=== PATIENT | female | born 1960 | race African-American/Black ===

== ENCOUNTER 2016-07-28 13:04 | Emergency (ER) | payer MEDICARE, MEDICAID ==
[2016-07-28] MEDS ORDERED: PREDNISONE 20 MG TABLET PO ONE (13:38)
[2016-07-28] MEDS ORDERED: ALBUTEROL SULFATE 0.083% NEB 2.5 MG/3 ML AMPUL NEB ONE (13:38)
--- NOTE | 2016-07-28 13:38 | ER Document Report ---
ED Medical Screen (RME) - General Stated Complaint: POSSIBLE ASTHMA PROBLEM Time seen by provider: 13:36 Mode of Arrival: Ambulatory Information source: Patient TRAVEL OUTSIDE OF THE U.S. IN LAST 30 DAYS: No - HPI Patient complains to provider of: ASTHMA ACTING UP Onset: Other - LAST NIGHT Onset/Duration: Sudden Quality of pain: Achy Severity: Moderate Pain Level: 3 Associated Symptoms: Cough (nonproductive), Sinus pain/drainage. denies: Fever Exacerbated by: Coughing, Deep breathing Relieved by: Denies Similar symptoms previously: Yes Recently seen / treated by doctor: No - Related Data Smoking: Non-smoker, Quit greater than 1 year Frequency of alcohol use: None Drug Abuse: None Allergies/Adverse Reactions: No Known Allergies Allergy (Verified 04/30/15 14:25) Past Medical History - Past Medical History Cardiac Medical History: Reports: Hx Hypertension Pulmonary Medical History: Reports: Hx Asthma, Hx COPD Musculoskeltal Medical History: Reports Hx Arthritis Past Surgical History: Reports: Hx Tubal Ligation, Hx Urinary Tract Surgery - Immunizations Immunizations up to date: Yes Hx Diphtheria, Pertussis, Tetanus Vaccination: Yes Physical Exam - Vital signs Vitals: Temp Pulse Resp BP Pulse Ox 98.8 F 82 22 H 157/114 H 97 07/28/16 13:35 07/28/16 13:35 07/28/16 13:35 07/28/16 13:35 07/28/16 13:35 Course - Vital Signs Vital signs: Temp Pulse Resp BP Pulse Ox 98.8 F 82 22 H 157/114 H 97 07/28/16 13:35 07/28/16 13:35 07/28/16 13:35 07/28/16 13:35 07/28/16 13:35
[2016-07-28] MEDS ORDERED: IPRATROPIUM/ALBUTEROL 0.5-2.5 MG/3 ML AMPUL NEB ONE ×2 (14:28→15:37)
--- NOTE | 2016-07-28 15:39 | ER Document Report ---
ED Respiratory Problem - General Time seen by provider: 15:38 Mode of Arrival: Ambulatory Information source: Patient TRAVEL OUTSIDE OF THE U.S. IN LAST 30 DAYS: No - General Chief Complaint: Shortness Of Breath Stated Complaint: POSSIBLE ASTHMA PROBLEM - Related Data Allergies/Adverse Reactions: No Known Allergies Allergy (Verified 07/28/16 13:39) Home Medications: Current Home Medications Atorvastatin Calcium 20 mg PO DAILY 07/28/16 [History] Cetirizine HCl [Zyrtec] 10 mg PO DAILY 07/28/16 [History] Past Medical History - General Information source: Patient - Social History Smoking Status: Former Smoker Chew tobacco use (# tins/day): No Frequency of alcohol use: None Drug Abuse: None Family History: Reviewed & Not Pertinent Patient has suicidal ideation: No Patient has homicidal ideation: No - Past Medical History Cardiac Medical History: Reports: Hx Hypercholesterolemia, Hx Hypertension Pulmonary Medical History: Reports: Hx Asthma, Hx COPD Renal/ Medical History: Denies: Hx Peritoneal Dialysis Musculoskeltal Medical History: Reports Hx Arthritis Past Surgical History: Reports: Hx Tonsillectomy, Hx Tubal Ligation, Hx Urinary Tract Surgery - Immunizations Immunizations up to date: Yes Hx Diphtheria, Pertussis, Tetanus Vaccination: Yes Hx Pneumococcal Vaccination: 06/28/12 Course - Vital Signs Vital signs: Temp Pulse Resp BP Pulse Ox 98.8 F 106 H 20 148/98 H 96 07/28/16 13:35 07/28/16 18:26 07/28/16 18:26 07/28/16 18:26 07/28/16 18:26 (DANIELE RODRÍGUEZ) (MICHELLE BOUCHER) - EKG Interpretation by Me Additional EKG results interpreted by me: 07/28/16 20:17 EKG sinus tachycardia [address] segment elevation or depression (MICHELLE BOUCHER) Discharge - Discharge Clinical Impression: Asthma exacerbation Condition: Stable Disposition: HOME, SELF-CARE Additional Instructions: Asthma You have been diagnosed as having asthma. This is a condition where there is episodic tightness in the bronchial tubes. Allergies, infections, and polluted or cold air may be contributing factors. Emergency treatment of a severe asthma attack may include adrenaline shots , or bronchodilator aerosol. You may feel lightheaded, have a decreased exercise tolerance and a rapid pulse for an hour or two. Rest and get plenty of fluids. Home treatment of asthma requires bronchodilator drugs. These can be administered by injection, inhalation, or by mouth. Antibiotics and corticosteroids may be required for some patients. You should avoid chemical fumes, dusts, pollens, and exercising in very cold or dry air. If you smoke, stop!! If you develop a fever, increased wheezing, chest pain, or severe shortness of breath, you should contact the doctor immediately Prescriptions: Prednisone [Deltasone 20 mg Tablet] 3 tab PO DAILY 5 Days Referrals: TERELL ROWLEY FNP [Primary Care Provider] - Follow up as needed (In one to 2 days return for increasing worsening or new symptoms)
[2016-07-28] MEDS: ALBUTEROL SULFATE 0.083% NEB 2.5 MG/3 ML AMPUL NEB SCH ×2 (15:45→15:50)
[2016-07-28] MEDS ORDERED: MAGNESIUM SULFATE/D5W 100 ML IV SCH (16:15)
--- NOTE | 2016-07-28 16:18 | ER Document Report ---
ED Respiratory Problem - General Mode of Arrival: Ambulatory Information source: Patient TRAVEL OUTSIDE OF THE U.S. IN LAST 30 DAYS: No - HPI Patient complains to provider of: Asthma, Short of breath Onset: Other - see above Context: Hx asthma, Hx COPD, Other - see above Associated symptoms: Other - see above - General Chief Complaint: Shortness Of Breath Stated Complaint: POSSIBLE ASTHMA PROBLEM Notes: 55-year-old female with history of COPD, asthma, and right leg DVT presents to the ED complaining of being sick for the past 3 weeks. Patient states that she currently feels like she is having an asthma exacerbation mixed with a cold. Patient states that her symptoms got better but then got progressively worse again. Patient is complaining of wheezing, dizziness, diaphoresis, weakness, and diarrhea for the past 2 days. Patient denies any body pains or joint aches. Patient is currently on albuterol, Symbicort, and uses a nebulizer at home. (ISAIAH TO) - Related Data Allergies/Adverse Reactions: No Known Allergies Allergy (Verified 07/28/16 13:39) Home Medications: Current Home Medications Atorvastatin Calcium 20 mg PO DAILY 07/28/16 [History] Cetirizine HCl [Zyrtec] 10 mg PO DAILY 07/28/16 [History] Past Medical History - General Information source: Patient - Social History Smoking Status: Former Smoker Chew tobacco use (# tins/day): No Frequency of alcohol use: None Drug Abuse: None Family History: Reviewed & Not Pertinent Patient has suicidal ideation: No Patient has homicidal ideation: No - Past Medical History Cardiac Medical History: Reports: Hx Hypercholesterolemia, Hx Hypertension Pulmonary Medical History: Reports: Hx Asthma, Hx COPD Renal/ Medical History: Denies: Hx Peritoneal Dialysis Musculoskeltal Medical History: Reports Hx Arthritis Past Surgical History: Reports: Hx Tonsillectomy, Hx Tubal Ligation, Hx Urinary Tract Surgery - Immunizations Immunizations up to date: Yes Hx Diphtheria, Pertussis, Tetanus Vaccination: Yes Hx Pneumococcal Vaccination: 06/28/12 Review of Systems - Review of Systems Constitutional: See HPI, Diaphoresis, Weakness. denies: Malaise EENT: No symptoms reported Cardiovascular: See HPI, Dizziness Respiratory: See HPI, Cough, Short of breath, Wheezing Gastrointestinal: See HPI, Diarrhea - past 2 days Genitourinary: No symptoms reported Female Genitourinary: No symptoms reported Musculoskeletal: No symptoms reported Skin: No symptoms reported Hematologic/Lymphatic: No symptoms reported Neurological/Psychological: No symptoms reported -: Yes All other systems reviewed and negative Physical Exam - General General appearance: Alert In distress: None - HEENT Head: Normocephalic, Atraumatic Eyes: Normal Extraocular movements intact: Yes Pupils: PERRL - Respiratory Respiratory status: No respiratory distress Breath sounds: Decreased air movement - Decreased air movement while on a nebulizer treatment. Pulse ox at 97% on examination., Wheezing - Expiratory - Cardiovascular Rhythm: Regular Heart sounds: Normal auscultation - Abdominal Inspection: Normal - Back Back: Normal - Extremities General upper extremity: Normal inspection, Normal ROM General lower extremity: Normal inspection, Normal ROM - Neurological Neuro grossly intact: Yes Cognition: Normal Orientation: AAOx4 Arben Coma Scale Eye Opening: Spontaneous [place] Coma Scale Verbal: Oriented [place] Coma Scale Motor: Obeys Commands Arben Coma Scale Total: 15 Speech: Normal - Psychological Associated symptoms: Normal affect, Normal mood - Skin Skin Temperature: Warm Skin Moisture: Dry Skin Color: Normal - Vital signs Vitals: Temp Pulse Resp BP Pulse Ox 98.8 F 82 22 H 157/114 H 97 07/28/16 13:35 07/28/16 13:35 07/28/16 13:35 07/28/16 13:35 07/28/16 13:35 (ISAIAH TO) (MICHELLE BOUCHER) Course - Re-evaluation Re-evalutation: 07/28/16 17:54 I personally performed the services described in the documentation, reviewed and edited the documentation which was dictated to my scribe in my presence, and it accurately records my words and actions. presents emergency per chief plain shortness breath and wheezing. She said she had a little bit of cold and started wheezing. She's been using an inhaler and breathing treatments at home. She states she's had a long-standing history of asthma cannot recall the last time she was on steroids but has not been intubated. She also has a history of COPD but she states it's very mild doesn't require oxygen. No fevers chills vomiting she is well-appearing nontoxic decreased lung sounds with expiratory wheezes. Chest x-ray nonacute ordered Solu -Medrol magnesium and [id number] breathing treatments. Reassessment patient got a small amount of the magnesium is completely symptom resolved right now breathing easily in no acute distress with no wheezing good air movement stable pulse ox. We'll DC on prednisone close PCP follow-up 1-2 days and return for increasing worsening or new symptoms (MICHELLE BOUCHER) - Vital Signs Vital signs: Temp Pulse Resp BP Pulse Ox 98.8 F 105 H 24 H 139/80 H 95 07/28/16 13:35 07/28/16 17:14 07/28/16 17:15 07/28/16 17:15 07/28/16 17:15 (ISAIAH TO) (MICHELLE BOUCHER) Discharge - Discharge Clinical Impression: Asthma exacerbation Condition: Stable Disposition: HOME, SELF-CARE Additional Instructions: Asthma You have been diagnosed as having asthma. This is a condition where there is episodic tightness in the bronchial tubes. Allergies, infections, and polluted or cold air may be contributing factors. Emergency treatment of a severe asthma attack may include adrenaline shots , or bronchodilator aerosol. You may feel lightheaded, have a decreased exercise tolerance and a rapid pulse for an hour or two. Rest and get plenty of fluids. Home treatment of asthma requires bronchodilator drugs. These can be administered by injection, inhalation, or by mouth. Antibiotics and corticosteroids may be required for some patients. You should avoid chemical fumes, dusts, pollens, and exercising in very cold or dry air. If you smoke, stop!! If you develop a fever, increased wheezing, chest pain, or severe shortness of breath, you should contact the doctor immediately Prescriptions: Prednisone [Deltasone 20 mg Tablet] 3 tab PO DAILY 5 Days Referrals: TERELL ROWLEY BOARD MEMBER [Primary Care Provider] - Follow up as needed (In one to 2 days return for increasing worsening or new symptoms) Scribe Documentation - Scribe Written by Itzel:: Itzel Wyatt, 07/28/2016 16:21 acting as scribe for :: Jak
[2016-07-28 18:07] VITALS: BP 148/98
--- NOTE | 2016-07-29 09:25 | EKG REPORT ---
SEVERITY:- OTHERWISE NORMAL ECG - SINUS TACHYCARDIA : Confirmed by: Fransico Marshall 29-Jul-2016 09:24:34
== END 2016-07-28 18:51 | disposition home or self-care (01) ==
LOC: ER 13:04
DX: J45.901 Unspecified asthma with (acute) exacerbation (principal); J44.9 Chronic obstructive pulmonary disease, unspecified; R42 Dizziness and giddiness; R61 Generalized hyperhidrosis; R53.1 Weakness; R19.7 Diarrhea, unspecified; R06.02 Shortness of breath; R05 Cough; I10 Essential (primary) hypertension; Z86.718 Personal history of other venous thrombosis and embolism; Z79.899 Other long term (current) drug therapy; Z79.51 Long term (current) use of inhaled steroids; Z87.891 Personal history of nicotine dependence
CPT/HCPCS: 93005; 94640 ×2; 99285; 96365; 96366; 71020; 93010; J3475; A9270 ×3; J7512; J7620

== ENCOUNTER 2016-10-05 17:15 | Emergency (ER) | payer MEDICARE, MEDICAID ==
[2016-10-05] MEDS: ALBUTEROL SULFATE 0.083% NEB 2.5 MG/3 ML AMPUL NEB SCH ×2 (17:41→18:03)
[2016-10-05] MEDS ORDERED: PENICILLIN V POTASSIUM 500 MG TABLET PO ONE (17:41)
[2016-10-05] MEDS ORDERED: PREDNISONE 20 MG TABLET PO ONE (17:41)
[2016-10-05] MEDS ORDERED: IPRATROPIUM/ALBUTEROL 0.5-2.5 MG/3 ML AMPUL NEB ONE (17:41)
[2016-10-05] MEDS ORDERED: HYDROCODONE/ACETAMINOPHEN 5-325 MG TABLET PO ONE (17:44)
--- NOTE | 2016-10-05 17:46 | ER Document Report ---
ED Respiratory Problem - General Chief Complaint: Asthma Exacerbation Stated Complaint: MOUTH PAIN Time seen by provider: 17:40 Mode of Arrival: Ambulatory Information source: Patient Notes: 55-year-old female presents to ED for shortness of breath right-sided mouth pain with a tooth that is half broken off. Patient states she broke a tooth off about 2 weeks ago, tooth has been hurting since Wednesday. States she just went to a were a lot of people were smoking she just got back to [place] and asthma attack started on the way home from the . TRAVEL OUTSIDE OF THE U.S. IN LAST 30 DAYS: No - HPI Patient complains to provider of: Asthma, COPD, Short of breath, Other - Dental pain number 28 tooth part of tooth broke off and now painful, states, also hurts Onset: Other - Tooth broke off 2 weeks ago started hurting on the way home asthma attack started on the way home Initiating Event: Exposure to smoke - Was at a and multiple people were smoking Quality of pain: Sharp - Tooth, Throbbing Severity: Severe Pain Level: 5 Context: Hx asthma, Hx COPD, Other - is a smoker and she was at a were multiple people were smoking Short of Breath: Moderate Chest pain/discomfort: Tightness Sputum amount: None At home treatment: Bronchodilators Associated symptoms: Dental decay, Short of breath, Toothache, Wheezing Similar symptoms previously: Yes Recently seen / treated by doctor: No - Related Data Allergies/Adverse Reactions: No Known Allergies Allergy (Verified 07/28/16 13:39) Past Medical History - General Information source: Patient - Social History Smoking Status: Former Smoker Cigarette use (# per day): No Chew tobacco use (# tins/day): No Smoking Education Provided: No Frequency of alcohol use: None Drug Abuse: None Lives with: Family Family History: CAD, CVA, DM, Hyperlipidemia, Hypertension, Malignancy - Past Medical History Cardiac Medical History: Reports: Hx Hypercholesterolemia, Hx Hypertension Pulmonary Medical History: Reports: Hx Asthma, Hx COPD EENT Medical History: Reports: None Neurological Medical History: Reports: None Endocrine Medical History: Reports: None Renal/ Medical History: Reports: None. Denies: Hx Peritoneal Dialysis Malignancy Medical History: Reports: None GI Medical History: Reports: None Musculoskeltal Medical History: Reports Hx Arthritis Skin Medical History: Reports None Psychiatric Medical History: Reports: None Traumatic Medical History: Reports: None Infectious Medical History: Reports: Hx C-Diff Past Surgical History: Reports: Hx Tonsillectomy, Hx Tubal Ligation, Hx Urinary Tract Surgery - Immunizations Immunizations up to date: Yes Hx Diphtheria, Pertussis, Tetanus Vaccination: Yes Hx Pneumococcal Vaccination: 06/28/12 Review of Systems - Review of Systems Constitutional: No symptoms reported EENT: Dental problem Cardiovascular: No symptoms reported Respiratory: Short of breath, Wheezing Gastrointestinal: No symptoms reported Genitourinary: No symptoms reported Female Genitourinary: No symptoms reported Musculoskeletal: No symptoms reported Skin: No symptoms reported Hematologic/Lymphatic: No symptoms reported Neurological/Psychological: No symptoms reported Physical Exam - Vital signs Vitals: Temp Pulse Resp BP Pulse Ox 98.4 F 84 28 H 164/106 H 100 10/05/16 17:27 10/05/16 17:27 10/05/16 17:27 10/05/16 17:27 10/05/16 17:27 Interpretation: Normal - General General appearance: Appears well, Alert - HEENT Head: Normocephalic, Atraumatic Eyes: Normal Pupils: PERRL Ears: Normal External canal: Normal Tympanic membrane: Normal Sinus: Normal Nasal: Normal Mouth/Lips: Caries Mucous membranes: Normal Teeth diagram: 1 - Part of tooth broken off, slight redness and tenderness to the gum surrounding the tooth. Pharynx: Normal Neck: Normal - Respiratory Respiratory status: Tachypnea Chest status: Other - States chest feels tight no pain Breath sounds: Decreased air movement, Wheezing Chest palpation: Normal - Cardiovascular Rhythm: Regular Heart sounds: Normal auscultation Murmur: No - Abdominal Inspection: Normal Distension: No distension Bowel sounds: Normal Tenderness: Nontender Organomegaly: No organomegaly - Back Back: Normal, Nontender - Extremities General upper extremity: Normal inspection, Nontender, Normal color, Normal ROM , Normal temperature General lower extremity: Normal inspection, Nontender, Normal color, Normal ROM , Normal temperature, Normal weight bearing. No: Renae's sign - Neurological Neuro grossly intact: Yes Cognition: Normal Orientation: AAOx4 Arben Coma Scale Eye Opening: Spontaneous Breaks Coma Scale Verbal: Oriented Arben Coma Scale Motor: Obeys Commands Breaks Coma Scale Total: 15 Speech: Normal Motor strength normal: LUE, RUE, LLE, RLE Sensory: Normal - Psychological Associated symptoms: Normal affect, Normal mood - Skin Skin Temperature: Warm Skin Moisture: Dry Skin Color: Normal Course - Re-evaluation Re-evalutation: 10/05/16 18:56 Patient was treated with albuterol and DuoNeb and prednisone for her COPD/ asthma exacerbation and Thomson and penicillin for her dental pain. Patient is feeling much better said she still having pain with her tooth. Patient was instructed that she needs to follow-up with dentist to get rid of the tooth pain as part of the tooth is broken off. We'll discharge home with prescription for prednisone penicillin and Thomson. Patient states she will call her dentist in the morning. Patient is instructed to also call her primary doctor concerning her COPD exacerbation. - Vital Signs Vital signs: Temp Pulse Resp BP Pulse Ox 98.4 F 84 28 H 164/106 H 100 10/05/16 17:27 10/05/16 17:27 10/05/16 17:27 10/05/16 17:27 10/05/16 17:27 - Diagnostic Test Radiology reviewed: Image reviewed, Reports reviewed Discharge - Discharge Clinical Impression: COPD exacerbation, Pain due to dental caries Condition: Stable Disposition: HOME, SELF-CARE Additional Instructions: TOOTHACHE: Your pain is due to dental decay. The tooth must be repaired in order for you to feel better. You will, therefore, be referred to a dentist. We do not have dentists on the staff at [facility]. Severe swelling or drainage around a tooth usually means a dental abscess. This also requires evaluation and treatment by the dentist, but antibiotics may be prescribed while awaiting dental treatment. You should be rechecked immediately if you develop major swelling of the face, increasing pain, a lump in the jaw or gums, headache, difficulty swallowing, or fever. ASTHMA: You have been diagnosed as having asthma. This is a condition where there is episodic tightness in the bronchial tubes. Allergies, infections, and polluted or cold air may be contributing factors. Emergency treatment of a severe asthma attack may include adrenaline shots , or bronchodilator aerosol. You may feel lightheaded, have a decreased exercise tolerance and a rapid pulse for an hour or two. Rest and get plenty of fluids. Home treatment of asthma requires bronchodilator drugs. These can be administered by injection, inhalation, or by mouth. Antibiotics and corticosteroids may be required for some patients. You should avoid chemical fumes, dusts, pollens, and exercising in very cold or dry air. If you smoke, stop!! If you develop a fever, increased wheezing, chest pain, or severe shortness of breath, you should contact the doctor immediately. STEROID MEDICATION: You have been given an injection of or oral medicine of the cortisone/ steroid class. This medication is used to control inflammation or allergy. Manuel t is usually only given for a short period of time, until the acute process subsides. There are usually no side effects from short-term use of cortisone-like medications. Some persons feel an increased sense of well-being and are not sleepy at bedtime. Long-term use of cortisone medications is best avoided, unless required for a severe condition. If your condition does not remit, or relapses after the course of corticosteroid medication, you should consult your physician. INHALED BRONCHODILATORS: You have received treatment(s) of and/or prescription for an inhaled bronchodilator -- a medication which stimulates the airways in the lung to dilate. This improves the flow of air in asthma, bronchitis, and emphysema. These medicines have some similarity to adrenaline, and can cause similar side effects: shakiness, racing heart, and a sense of nervousness. These side effects decrease with time. Contact your doctor if these side effects are severe. Do not over-use the medicine. Too-frequent use of the inhaler may make it ineffective. Call your doctor if the inhaler is not controlling your symptoms at the prescribed doses. ORAL NARCOTIC MEDICATION: You have been given a prescription for pain control. This medication is a narcotic. It's best taken with food, as nausea can result if taken on an empty stomach. Don't operate machinery or drive within six hours of taking this medication. Do not combine this medicine with alcohol, or with any medication which can cause sedation (such as cold tablets or sleeping pills) unless you get permission from the physician. Narcotics tend to cause constipation. If possible, drink plenty of fluids and eat a diet high in fiber and fruits. Please be aware that prescription narcotics also have the potential for abuse. People become addicted to these medications because of the general sense of wellbeing that they induce. This feeling along with a significant reduction in tension, anxiety, and aggression provides a stimulating seductive quality to these drugs. Once your pain is under control, we encourage you to discard your unused narcotics. PENICILLIN V K: You have been given a prescription for Penicillin VK. Your physician has determined that this is the best antibiotic for your condition. Pen VK can be taken with meals, however more of the antibiotic gets into the bloodstream if it's taken on an empty stomach. Penicillin usually has no side effects. However, allergy to penicillins is common. If you have had an allergic reaction to any drug of the penicillin family, you should never take any other penicillin. Notify your doctor at once if you develop hives, itching, swelling, faintness, or shortness of breath. Please complete the patient's satisfaction survey if you get one and return. If you do not receive a survey you can go to [facility] website [email or web address] and place your comments about your very good care. Thank you very much. It was a pleasure be in your medical provider today. FOLLOW-UP your CARE: Please call a dentist in follow-up in the morning also please follow-up tomorrow by telephone with your primary doctor concerning your laceration of your COPD and asthma. You have been referred for follow-up care to the dentists listed below. Call the dentists office for an appointment as you were instructed or within the next two days. If you experience worsening or a significant change in your symptoms, notify the physician immediately or return to the Emergency Department at any time for re-evaluation. [facility] [address] [place] [address] Formerly [facility], [facility] [address] [facility]. [facility] [address] [facility]. [facility] [address] [facility]. [email or web address] [facility] [address] [place] [address] Wednesday- 8:00am to 5:00 pm Will see patients from other [facility]. Charges based on income and family size and accepts Medicare, Medicaid, and Insurances Will pull molars [facility], [facility], [facility]. [id number] Hours of Operation 8:00 am - 4:30 pm weekdays The following dental offices accept Medicaid: [facility] [place] Dr. Adams Dr. Bassett Dr. Castro Dr. Mcgee Luis Guerrero, Tere, and [facility] oral surgery Dr. Sawyer ([place]) Dr. Hale ([place]) [facility] Drs. Chen ([place]) Dr. Mcgovern ([place]) [facility] Dr. Luque ([place]) Drs. Soliz and ([place]) Medicaid Care Line Prescriptions: Hydrocodone/Acetaminophen [Thomson 5-325 mg Tablet] 1 tab PO Q6HP PRN #14 tablet PRN Reason: Penicillin V Potassium [Penicillin Vk 500 mg Tablet] 500 mg PO BID #20 tablet Prednisone [Deltasone 20 mg Tablet] 3 tab PO DAILY 5 Days Forms: Elevated Blood Pressure Referrals: TERELL ROWLEY FNP [Primary Care Provider] - Follow up tomorrow
[2016-10-05 19:12] VITALS: BP 176/94
== END 2016-10-05 19:05 | disposition home or self-care (01) ==
LOC: ER 17:15
DX: J44.1 Chronic obstructive pulmonary disease with (acute) exacerbation (principal); K02.9 Dental caries, unspecified; K08.89 Other specified disorders of teeth and supporting structures; Z87.891 Personal history of nicotine dependence
CPT/HCPCS: 94640 ×2; 99284; 71020; A9270 ×5; J7512; J7620

== ENCOUNTER 2017-01-22 09:18 | Emergency (ER) | payer MEDICARE, MEDICAID ==
[2017-01-22] MEDS ORDERED: FAMOTIDINE 20 MG TABLET PO ONE (09:48)
[2017-01-22] MEDS ORDERED: LORATADINE 10 MG TABLET PO ONE (09:48)
--- NOTE | 2017-01-22 09:53 | ER Document Report ---
HPI - HPI Patient complains to provider of: bee sting Onset: Other Onset/Duration: Sudden Quality of pain: Throbbing Severity: Moderate Pain Level: 4 Context: Patient was stung on her right little finger 3 days ago. Still having swelling to the finger and back of right hand. Has only taken 1 dose of Benadryl. Associated Symptoms: None Exacerbated by: Movement Relieved by: Denies Similar symptoms previously: Yes Recently seen / treated by doctor: No - ROS ROS below otherwise negative: Yes Systems Reviewed and Negative: Yes All other systems reviewed and negative - CONSTITUTIONAL Constitutional: DENIES: Fever - EENT EENT: DENIES: Congestion - NEURO Neurology: DENIES: Headache - CARDIOVASCULAR Cardiovascular: DENIES: Chest pain - RESPIRATORY Respiratory: DENIES: Trouble Breathing - GASTROINTESTINAL Gastrointestinal: DENIES: Abdominal Pain - URINARY Urinary: DENIES: Dysuria - REPRODUCTIVE Reproductive: DENIES: : - MUSCULOSKELETAL Musculoskeletal: REPORTS: Extremity pain - Right hand - DERM Skin Color: Erythema Past Medical History - General Information source: Patient - Social History Smoking Status: Former Smoker Frequency of alcohol use: Occasional Drug Abuse: None Lives with: Spouse/Significant other Family History: CAD, CVA, DM, Hyperlipidemia, Hypertension, Malignancy - Past Medical History Cardiac Medical History: Reports: Hx Hypercholesterolemia, Hx Hypertension Pulmonary Medical History: Reports: Hx Asthma, Hx COPD Musculoskeltal Medical History: Reports Hx Arthritis Infectious Medical History: Reports: Hx C-Diff Past Surgical History: Reports: Hx Tonsillectomy, Hx Tubal Ligation, Hx Urinary Tract Surgery - Immunizations Immunizations up to date: Yes Hx Diphtheria, Pertussis, Tetanus Vaccination: Yes Hx Pneumococcal Vaccination: 06/28/12 Vertical Provider Document - CONSTITUTIONAL Agree With Documented VS: Yes Exam Limitations: No Limitations General Appearance: WD/WN, No Apparent Distress - INFECTION CONTROL TRAVEL OUTSIDE OF THE [place] IN LAST 30 DAYS: No - HEENT HEENT: Atraumatic, Normal ENT Exam, Normocephalic - NECK Neck: Normal Inspection, Supple - RESPIRATORY Respiratory: Breath Sounds Normal, No Respiratory Distress O2 Sat by Pulse Oximetry: 98 - CARDIOVASCULAR Cardiovascular: Regular Rate, Regular Rhythm - MUSCULOSKELETAL/EXTREMETIES Musculoskeletal/Extremeties: MAEW, Tender, Edema - Right fifth finger extending over the dorsal side of the right hand. No signs and symptoms of infection - NEURO Level of Consciousness: Awake, Alert, Appropriate - DERM Integumentary: Warm, Dry Course - Vital Signs Vital signs: Temp Pulse Resp BP Pulse Ox 98.5 F 79 16 175/98 H 98 01/22/17 09:21 01/22/17 09:21 01/22/17 09:21 01/22/17 09:21 01/22/17 09:21 Discharge - Discharge Clinical Impression: Bee sting reaction Qualifiers: Encounter type: initial encounter Injury intent: undetermined intent Qualified Code(s): T63.444A - Toxic effect of venom of bees, undetermined, initial encounter Condition: Good Disposition: HOME, SELF-CARE Additional Instructions: Take prednisone as prescribed for local reaction OTC Pepcid 20 mg every 12 hours for reaction/itching OTC Benadryl 1-2 tabs every 4-6 hours as needed for reaction/itching Cool compresses to hand Keep hand elevated Follow-up with your doctor if no improvement within 48 hours. Prescriptions: Prednisone [Deltasone 10 mg Tablet] 10 mg PO ASDIR PRN #21 tablet PRN Reason:
[2017-01-22 10:08] VITALS: BP 156/92
== END 2017-01-22 10:01 | disposition home or self-care (01) ==
LOC: ER 09:18
DX: T63.441A Toxic effect of venom of bees, accidental (unintentional), initial encounter (principal); M79.89 Other specified soft tissue disorders; I10 Essential (primary) hypertension; J44.9 Chronic obstructive pulmonary disease, unspecified; Z87.891 Personal history of nicotine dependence
CPT/HCPCS: 99282; A9270 ×2

== ENCOUNTER 2018-03-15 11:48 | Emergency (ER) | payer MEDICARE, MEDICAID ==
[2018-03-15] MEDS ORDERED: ALBUTEROL SULFATE 0.083% NEB 2.5 MG/3 ML AMPUL NEB ONE (11:52)
[2018-03-15] MEDS ORDERED: IPRATROPIUM/ALBUTEROL 0.5-2.5 MG/3 ML AMPUL NEB ONE (11:53)
[2018-03-15] MEDS ORDERED: METHYLPREDNISOLONE INJ 125 MG/2 ML SDV IV ONE (11:53)
[2018-03-15] MEDS ORDERED: GUAIFENESIN/CODEINE PHOS 100-10 MG/ 5 ML UDC PO ONE (11:55)
--- NOTE | 2018-03-15 11:56 | ER Document Report ---
ED Medical Screen (RME) - General Chief Complaint: Breathing Difficulty Stated Complaint: SHORTNESS OF BREATH Time Seen by Provider: 03/15/18 11:52 Notes: 57 years old female presents today with difficulty in breathing and wheezing with a history of asthma. She has been wheezing since last Wednesday. Coughing up yellow sputum. No fever chills. On examination-moderate to severe respiratory distress, wheezing diffusely, coughing. Chief complaint: Shortness of breath 57 years old female presents today with exacerbation of asthma and wheezing. No fever chills or other constitutional symptoms. She did not have electricity use a nebulizer at home. But she had inhalers. History of complain: As above Onset: Gradual Duration: Continuous last few days Severity: Mild to moderate Quality: Wheezing Context: Asthma Exacerbating factor and relieving factors: Exertion REVIEW OF SYSTEMS: CONSTITUTIONAL : Denies fever, chills, or sweats. Denies recent illness. EENT: Denies eye, ear, throat, or mouth pain or symptoms. Denies nasal or sinus congestion or discharge. Denies throat, tongue, or mouth swelling or difficulty swallowing. CARDIOVASCULAR: Denies chest pain. Denies palpitations or racing or irregular heart beat. Denies ankle edema. RESPIRATORY: Denies cough, cold, or chest congestion. Denies shortness of breath, difficulty breathing, or wheezing. GASTROINTESTINAL: Denies abdominal pain or distention. Denies nausea, vomiting , or diarrhea. Denies blood in vomitus, stools, or per rectum. Denies black, tarry stools. Denies constipation. GENITOURINARY: Denies difficulty urinating, painful urination, burning, frequency, blood in urine, or discharge. MUSCULOSKELETAL: Denies back or neck pain or stiffness. Denies joint pain or swelling. SKIN: Denies rash, lesions or sores. HEMATOLOGIC : Denies easy bruising or bleeding. LYMPHATIC: Denies swollen, enlarged glands. NEUROLOGICAL: Denies confusion or altered mental status. Denies passing out or loss of consciousness. Denies dizziness or lightheadedness. Denies headache. Denies weakness or paralysis or loss of use of either side. Denies problems with gait or speech. Denies sensory loss, numbness, or tingling. Denies seizures. PSYCHIATRIC: Denies anxiety or stress. Denies depression, suicidal ideation, or homicidal ideation. ALL OTHER SYSTEMS REVIEWED AND NEGATIVE. Dictation was performed using [employer] voice recognition software PHYSICAL EXAMINATION: GENERAL: Well-appearing, well-nourished and in no acute distress. HEAD: Atraumatic, normocephalic. EYES: Pupils equal round and reactive to light, extraocular movements intact, sclera anicteric, conjunctiva are normal. ENT: Nares patent, oropharynx clear without exudates. Moist mucous membranes. NECK: Normal range of motion, supple without lymphadenopathy LUNGS: Breath sounds .... Bilateral diffuse wheezing expiratory no rales HEART: Regular rate and rhythm without murmurs ABDOMEN: Soft, nontender, nondistended abdomen. No guarding, no rebound. No masses appreciated. Musculoskeletal: Normal range of motion, no pitting or edema. No cyanosis. NEUROLOGICAL: Cranial nerves grossly intact. Normal speech, normal gait. Normal sensory, motor exams PSYCH: Normal mood, normal affect. SKIN: Warm, Dry, normal turgor, no rashes or lesions noted. TRAVEL OUTSIDE OF THE [place] IN LAST 30 DAYS: No - HPI Notes: 03/15/18 13:23 Dictated - Related Data Allergies/Adverse Reactions: spider venom Allergy (Verified 03/15/18 11:49) bee sting Allergy (Uncoded 01/22/17 09:21) Past Medical History - Social History Cigarette use (# per day): No Frequency of alcohol use: None Lives with: Family Family history: Reviewed & Not Pertinent - Past Medical History Cardiac Medical History: Reports: Hx Hypercholesterolemia, Hx Hypertension Pulmonary Medical History: Reports: Hx Asthma, Hx COPD Renal/ Medical History: Denies: Hx Peritoneal Dialysis Musculoskeltal Medical History: Reports Hx Arthritis Infectious Medical History: Reports: Hx C-Diff Past Surgical History: Reports: Hx Tonsillectomy, Hx Tubal Ligation, Hx Urinary Tract Surgery - Immunizations Immunizations up to date: Yes Hx Diphtheria, Pertussis, Tetanus Vaccination: Yes Review of Systems - Review of Systems Notes: I have any something from meDictated Physical Exam - Vital signs Vitals: Temp Pulse Resp BP Pulse Ox 98.2 F 90 24 H 158/110 H 100 03/15/18 11:51 03/15/18 11:51 03/15/18 11:51 03/15/18 11:51 03/15/18 11:51 - Notes Notes: Dictated Course - Re-evaluation Re-evalutation: 03/15/18 13:24 Clinical improvement discharge home - Vital Signs Vital signs: Temp Pulse Resp BP Pulse Ox 98.2 F 90 24 H 158/110 H 100 03/15/18 11:51 03/15/18 11:51 03/15/18 11:51 03/15/18 11:51 03/15/18 11:51 - Laboratory Result Diagrams: 03/15/18 12:00 03/15/18 12:00 Laboratory results interpreted by me: 03/15/18 12:00 Direct Bilirubin 0.5 H Doctor's Discharge - Discharge Clinical Impression: Exacerbation of asthma Qualifiers: Asthma severity: moderate Asthma persistence: unspecified Qualified Code(s): J45.901 - Unspecified asthma with (acute) exacerbation Condition: Good Disposition: HOME, SELF-CARE Instructions: Asthma ([facility]) Prescriptions: Prednisone [Sterapred Ds] 10 mg PO ASDIR PRN 6 Days #1 tab.ds.pk PRN Reason:
[2018-03-15] MEDS: MAGNESIUM SULFATE/D5W 1 GM/100 ML RTUPB IV SCH ×2 (12:09→12:54)
[2018-03-15 12:33] LABS: ABSOLUTE EOSINOPHILS # (AUTO) 0.1 10^3/uL (0.0-0.6); ABSOLUTE LYMPHOCYTES (AUTO) 1.8 10^3/uL (0.5-4.7); ABSOLUTE MONOCYTES (AUTO) 0.5 10^3/uL (0.1-1.4); ABSOLUTE NEUT (AUTO) 3.9 10^3/uL (1.7-8.2); BASOPHILS % (AUTO) 0.6 % (0-2); EOSINOPHILS % (AUTO) 1.7 % (0-6); HEMATOCRIT 38.9 % (36.0-47.0); LYMPHOCYTES % (AUTO) 28.2 % (13-45); MEAN CORPUSCULAR HEMOGLOBIN 27.3 pg (27.0-33.4); MEAN CORPUSCULAR HGB CONC 33.4 g/dL (32.0-36.0); MEAN CORPUSCULAR VOLUME 82 fl (80-97); MONOCYTES % (AUTO) 7.7 % (3-13); PLATELET COUNT 264 10^3/uL (150-450); RED BLOOD COUNT 4.76 10^6/uL (3.72-5.28); SEGMENTED NEUTROPHILS % (AUTO) 61.8 % (42-78); TOTAL CELLS COUNTED % (AUTO) 100 %; WHITE BLOOD COUNT 6.3 10^3/uL (4.0-10.5)
[2018-03-15 12:57] LABS: ALANINE AMINOTRANSFERASE 21 U/L (9-52); ALBUMIN 4.4 g/dL (3.5-5.0); ALKALINE PHOSPHATASE 66 U/L (38-126); ANION GAP 9 (5-19); ASPARTATE AMINO TRANSFERASE 24 U/L (14-36); BILIRUBIN,DIRECT 0.5 mg/dL (0.0-0.4); BILIRUBIN,TOTAL 0.7 mg/dL (0.2-1.3); BLOOD UREA NITROGEN 10 mg/dL (7-20); CALCIUM 9.4 mg/dL (8.4-10.2); CARBON DIOXIDE 27 mmol/L (22-30); CHLORIDE 106 mmol/L (98-107); CREATINE KINASE 96 U/L (30-135); GLUCOSE 81 mg/dL (75-110); POTASSIUM 4.4 mmol/L (3.6-5.0); SODIUM 142.2 mmol/L (137-145); TOTAL PROTEIN 7.6 g/dL (6.3-8.2)
[2018-03-15 13:10] LABS: NT PRO BNP 121 pg/mL (5-900); TROPONIN I < 0.012 ng/mL
[2018-03-15 13:30] VITALS: BP 166/99
== END 2018-03-15 13:30 | disposition home or self-care (01) ==
LOC: ER 11:48
DX: J45.901 Unspecified asthma with (acute) exacerbation (principal); J44.9 Chronic obstructive pulmonary disease, unspecified; I10 Essential (primary) hypertension; R06.02 Shortness of breath; R05 Cough; Z91.038 Other insect allergy status; Z91.030 Bee allergy status
CPT/HCPCS: 94640 ×2; 99285; 96375; 96365; 36415; 82553; 82550; 85025; 80053; 84484; 83880; J2930; J3475; A9270 ×2; J7620

== ENCOUNTER 2018-07-02 11:22 | Emergency (ER) | payer MEDICARE ==
[2018-07-02] MEDS ORDERED: MAG HYDROX/AL HYDROX/SIMETH SUSP 30 ML UDCUP PO ONE (12:33)
[2018-07-02] MEDS ORDERED: LIDOCAINE 2% VISCOUS SOLN 20 ML UDCUP PO ONE (12:33)
[2018-07-02] MEDS ORDERED: METOCLOPRAMIDE HCL ORAL SOLN 10 MG/10 ML UDCUP PO ONE (12:33)
[2018-07-02] MEDS ORDERED: LIDOCAINE 5% (700 MG) TRANSDERMAL ADH..PATCH TP ONE (12:34)
[2018-07-02] MEDS ORDERED: ACETAMINOPHEN 325 MG TABLET PO ONE (12:34)
--- NOTE | 2018-07-02 12:43 | EKG REPORT ---
SEVERITY:- NORMAL ECG - SINUS RHYTHM : Confirmed by: Jo Ann Soares MD 02-Jul-2018 12:43:30
--- NOTE | 2018-07-02 12:53 | ER Document Report ---
ED Medical Screen (RME) - General Chief Complaint: Chest Tightness Stated Complaint: CHEST TIGHTNESS Time Seen by Provider: 07/02/18 12:19 TRAVEL OUTSIDE OF THE [place] IN LAST 30 DAYS: No - HPI Patient complains to provider of: Left side pain Onset: Other - This is a 57-year-old female that presents for evaluation of pain along her left side she states that it gradually came on today worsening than it had been but it has been aching for a few days and is worse that she tries to move bed or lift anything. Her notes that they went bowling and she has been doing a lot of lifting and moving of late. Nothing is made it better she says the movement makes it worse. She is not take anything to try and help with it. She does endorse drinking more coffee than usual lately but denies any heavy acidic food consumption history of similar pains in the past though she does have a history of reflux disease for which she is not taking any medications. She is scheduled to see her primary doctor in 3 days. - Related Data Allergies/Adverse Reactions: spider venom Allergy (Verified 07/02/18 11:25) bee sting Allergy (Uncoded 07/02/18 11:25) Past Medical History - General Information source: Patient - Social History Cigarette use (# per day): No Chew tobacco use (# tins/day): No Frequency of alcohol use: Occasional Drug Abuse: None Family history: Reviewed & Not Pertinent - Past Medical History Cardiac Medical History: Reports: Hx Hypercholesterolemia, Hx Hypertension Pulmonary Medical History: Reports: Hx Asthma, Hx COPD Renal/ Medical History: Denies: Hx Peritoneal Dialysis Musculoskeltal Medical History: Reports Hx Arthritis Infectious Medical History: Reports: Hx C-Diff Past Surgical History: Reports: Hx Tonsillectomy, Hx Tubal Ligation, Hx Urinary Tract Surgery - Immunizations Immunizations up to date: Yes Hx Diphtheria, Pertussis, Tetanus Vaccination: Yes Review of Systems - Review of Systems -: Yes All other systems reviewed and negative Physical Exam - Vital signs Vitals: Temp Pulse Resp BP Pulse Ox 97.8 F 65 20 162/77 H 97 07/02/18 11:50 07/02/18 11:50 07/02/18 11:50 07/02/18 11:50 07/02/18 11:50 Interpretation: Normal - General General appearance: Appears well, Alert - HEENT Head: Normocephalic, Atraumatic Eyes: Normal Pupils: PERRL - Respiratory Respiratory status: No respiratory distress Chest status: Nontender Breath sounds: Normal Chest palpation: Normal - Cardiovascular Rhythm: Regular Heart sounds: Normal auscultation Murmur: No - Abdominal Inspection: Normal Distension: No distension Bowel sounds: Normal Tenderness: Nontender Organomegaly: No organomegaly, Other - No palpable splenomegaly to deep palpation - Back Back: Tender - There is tenderness along the costal margin of the left lateral aspect of the rib cage, - Extremities General upper extremity: Normal inspection, Nontender, Normal color, Normal ROM, Normal temperature General lower extremity: Normal inspection, Nontender, Normal color, Normal ROM, Normal temperature, Normal weight bearing. No: Renae's sign - Neurological Neuro grossly intact: Yes Cognition: Normal Orientation: AAOx4 Arben Coma Scale Eye Opening: Spontaneous Arben Coma Scale Verbal: Oriented Arben Coma Scale Motor: Obeys Commands Arben Coma Scale Total: 15 Speech: Normal Motor strength normal: LUE, RUE, LLE, RLE Sensory: Normal - Psychological Associated symptoms: Normal affect, Normal mood - Skin Skin Temperature: Warm Skin Moisture: Dry Skin Color: Normal Course - Re-evaluation Re-evalutation: 07/02/18 13:12 This 49-year-old female says that she has an appointment with her doctor on Wednesday states that she does not want anything done today more than seems necessary. On examination she is got point tenderness over the left oblique, there is no rebound no guarding. She is nontender to deep palpation. There is no obvious splenomegaly. She could potentially have gastritis as she is a heavy coffee drinker reportedly from her however this is essentially not the case. She states that she feels like she would like to follow-up with her doctor and avoid medicines if able. I believe this is a reasonable approach will administer a GI cocktail here place a patch for comfort give a gram of Tylenol and Voltaren gel on discharge. - Vital Signs Vital signs: Temp Pulse Resp BP Pulse Ox 97.4 F 71 16 152/88 H 98 07/02/18 13:06 07/02/18 13:06 07/02/18 13:06 07/02/18 13:06 07/02/18 13:06 Doctor's Discharge - Discharge Clinical Impression: Flank pain, Muscle strain Condition: Good Disposition: HOME, SELF-CARE Instructions: Abdominal Pain ([facility]) Additional Instructions: You were seen in the emergency department for the pain in your side. You had evaluation including a physical exam. I think that this pain could be either an oblique strain or possible gastritis. You can take an acid blocking pill, avoid acid-containing foods and to talk to your doctor on Wednesday. You should also take Tylenol and Motrin as needed for your side pain. This could be an oblique strain because of the strains from carrying or lifting heavy things. Keep your appointment on Wednesday with your doctor. Return in case the pain changes worsens or makes it hard for you to eat or drink. Prescriptions: Diclofenac Sodium [Voltaren] 100 gm TP BID PRN #1 gel..gm. PRN Reason:
[2018-07-02 13:08] VITALS: BP 152/88
== END 2018-07-02 13:13 | disposition home or self-care (01) ==
LOC: ER 11:22
DX: S29.011A Strain of muscle and tendon of front wall of thorax, initial encounter (principal); R10.9 Unspecified abdominal pain; R07.9 Chest pain, unspecified; X50.9XXA Other and unspecified overexertion or strenuous movements or postures, initial encounter; I10 Essential (primary) hypertension; J44.9 Chronic obstructive pulmonary disease, unspecified
CPT/HCPCS: 93005; 99284; 93010; A9270 ×2; J3490

== ENCOUNTER → 2018-07-14 | Outpatient (CLI) | payer MEDICARE ==
--- NOTE | 2018-07-14 12:42 | RADIOLOGY REPORT (SQ) ---
EXAM DESCRIPTION: KNEE RIGHT 4 VIEWS COMPLETED DATE/TIME: 07/14/2018 10:49 am REASON FOR STUDY: BILATERAL KNEE PAIN M25.569 PAIN IN UNSPECIFIED KNEE COMPARISON: None. NUMBER OF VIEWS: Four views. TECHNIQUE: AP, lateral, and both oblique radiographic images acquired of the right knee. LIMITATIONS: None. FINDINGS: MINERALIZATION: Normal. BONES: No acute fracture or dislocation. No worrisome bone lesions. JOINT: No effusion. SOFT TISSUES: No soft tissue swelling. No radio-opaque foreign body. OTHER: No other significant finding. IMPRESSION: NEGATIVE STUDY OF THE RIGHT KNEE. NO RADIOGRAPHIC EVIDENCE OF ACUTE INJURY. TECHNICAL DOCUMENTATION: JOB ID: [id number] [employer]- All Rights Reserved Reading location - IP/workstation name: [email or web address]
--- NOTE | 2018-07-14 12:48 | RADIOLOGY REPORT (SQ) ---
EXAM DESCRIPTION: KNEE LEFT 4 VIEW COMPLETED DATE/TIME: 07/14/2018 10:48 am REASON FOR STUDY: BILATERAL KNEE PAIN M25.569 PAIN IN UNSPECIFIED KNEE COMPARISON: None. NUMBER OF VIEWS: Four views. TECHNIQUE: AP, lateral, and both oblique radiographic images acquired of the left knee. LIMITATIONS: None. FINDINGS: MINERALIZATION: Normal. BONES: No acute fracture or dislocation. No worrisome bone lesions. JOINT: No effusion. SOFT TISSUES: No soft tissue swelling. No radio-opaque foreign body. OTHER: No other significant finding. IMPRESSION: NEGATIVE STUDY OF THE LEFT KNEE. NO RADIOGRAPHIC EVIDENCE OF ACUTE INJURY. TECHNICAL DOCUMENTATION: JOB ID: [id number] [employer]- All Rights Reserved Reading location - IP/workstation name: [email or web address]
== END ==
LOC: RAD 09:57
PROVIDERS: ATTEND Nurse Practitioner Family
DX: M25.562 Pain in left knee (principal); M25.561 Pain in right knee

== ENCOUNTER 2018-11-28 09:28 | Emergency (ER) | payer MEDICARE ==
[2018-11-28] MEDS ORDERED: PENICILLIN V POTASSIUM 500 MG TABLET PO ONE (11:28)
[2018-11-28] MEDS ORDERED: LIDOCAINE 2% VISCOUS SOLN 20 ML UDCUP PO ONE (11:28)
--- NOTE | 2018-11-28 11:40 | ER Document Report ---
HPI - HPI Patient complains to provider of: tooth infection Time Seen by Provider: 11/28/18 11:12 Pain Level: 5 Context: Well-appearing 58-year-old female presents emergency department chief complaint of tooth infection of the #19 tooth. She said the tooth broke off about 3 months ago and started having pain yesterday and then had swelling overnight. She denies fevers or chills, denies neck stiffness, denies shortness of breath or difficulty breathing, denies ear pain or jaw pain, denies chest pain, denies sore throat. No other complaints - REPRODUCTIVE Reproductive: DENIES: : Past Medical History - Social History Smoking Status: Former Smoker Chew tobacco use (# tins/day): No Frequency of alcohol use: Occasional Drug Abuse: None Family History: CAD, CVA, DM, Hyperlipidemia, Hypertension, Malignancy Patient has suicidal ideation: No Patient has homicidal ideation: No - Past Medical History Cardiac Medical History: Reports: Hx Hypercholesterolemia, Hx Hypertension Pulmonary Medical History: Reports: Hx Asthma, Hx COPD Renal/ Medical History: Denies: Hx Peritoneal Dialysis Musculoskeletal Medical History: Reports Hx Arthritis Infectious Medical History: Reports: Hx C-Diff Past Surgical History: Reports: Hx Tonsillectomy, Hx Tubal Ligation, Hx Urinary Tract Surgery - Immunizations Immunizations up to date: Yes Hx Diphtheria, Pertussis, Tetanus Vaccination: Yes Hx Pneumococcal Vaccination: 06/28/12 Vertical Provider Document - CONSTITUTIONAL Notes: PHYSICAL EXAMINATION: Reviewed vital signs and charting by RN GENERAL: Alert, interacts well. No acute distress. HEAD: Localized swelling of the anterior left jaw, atraumatic. EYES: Pupils equal, round. Extraocular movements intact. ENT: Oral mucosa moist, tongue midline. NECK: Full range of motion. Supple. Trachea midline. EXTREMITIES: Moves all 4 extremities spontaneously. No edema, No cyanosis. PSYCH: Normal affect, normal mood. SKIN: Warm, dry, normal turgor. No rashes or lesions noted. - INFECTION CONTROL TRAVEL OUTSIDE OF THE [place] IN LAST 30 DAYS: No - HEENT Mouth Diagram: 1 - Broken tooth with surrounding edema and minimal purulent discharge from the buccal side of the #19 tooth. There is swelling of the anterior portion of the jaw around the tooth. I could not identify an area of fluctuance to place a needle for aspiration Course - Re-evaluation Re-evalutation: 11/28/18 11:30 Presentation is most consistent with likely an infected tooth. Airway is patent. Vitals within normal limits. Patient is able swallow without any difficulty. There is no significant facial swelling. No evidence of Daniel angina, apical abscess, or airway obstruction. Patient will be started on antibiotics. I've instructed to follow-up with dentistry as earliest ability for definitive management. At this time will discharge with return precautions and follow-up recommendations. Verbal discharge instructions given a the bedside and opportunity for questions given. Medication warnings reviewed. Patient is in agreement with this plan and has verbalized understanding of return precautions and the need for primary care follow-up in the next 24-72 hours. - Vital Signs Vital signs: Temp Pulse Resp BP Pulse Ox 97.7 F 68 20 198/92 H 97 11/28/18 09:43 11/28/18 09:43 11/28/18 09:43 11/28/18 09:43 11/28/18 09:43 Discharge - Discharge Clinical Impression: Tooth infection Condition: Good Disposition: HOME, SELF-CARE Instructions: Penicillin V K ([facility] Toothache ([facility]) Additional Instructions: You have been seen for dental pain. It is very important that you follow-up with a dentist for definitive care. Please take the penicillin 500 mg by mouth twice a day for 10 days. Please return if you develop fever greater than 101, swelling in your face, vomiting, difficulty breathing or swallowing, or any other symptoms that are concerning to you. For pain you should take ibuprofen 600 mg every [address] Jose Corado [address] [place] [address] Prescriptions: Penicillin V Potassium [Penicillin Vk 500 mg Tablet] 500 mg PO BID #20 tablet
[2018-11-28 11:44] VITALS: BP 174/95
== END 2018-11-28 11:51 | disposition home or self-care (01) ==
LOC: ER 09:28
DX: K04.7 Periapical abscess without sinus (principal); I10 Essential (primary) hypertension; J44.9 Chronic obstructive pulmonary disease, unspecified; Z87.891 Personal history of nicotine dependence
CPT/HCPCS: 99282; J3490; A9270

== ENCOUNTER 2018-12-08 12:51 | Emergency (ER) | payer MEDICARE ==
[2018-12-08 12:58] VITALS: BP 158/109
[2018-12-08] MEDS ORDERED: CLINDAMYCIN 600 MG/D5W RTU 600 MG/50 ML RTUPB IV ONE (13:11)
--- NOTE | 2018-12-08 13:11 | ER Document Report ---
ED Medical Screen (RME) - General Chief Complaint: Toothache Stated Complaint: ABCESS Time Seen by Provider: 12/08/18 13:08 Mode of Arrival: Ambulatory Information source: Patient Notes: 58-year-old female presented to ED for complaint of pain and swelling to the left side of her face. She states it was getting better with the penicillin VK and she is down to 1 pill left and now with only it is getting much larger. She states she swelling started on November 27 she came to the ER on the third they started on the Pen-Vee K and it is now worse. She states she was told not to go to the dentist because she was finished all of her antibiotics here she states right now the pain is so that it is difficult to swallow from the pain. She is alert oriented respirations regular and unlabored speaking in full sentences walks with a even steady gait. I have greeted and performed a rapid initial assessment of this patient. A comprehensive ED assessment and evaluation of the patient, analysis of test results and completion of medical decision making process will be conducted by an additional ED providers. Dictation of this chart was performed using voice recognition software; therefore, there may be some unintended grammatical errors. TRAVEL OUTSIDE OF THE [place] IN LAST 30 DAYS: No - Related Data Allergies/Adverse Reactions: spider venom Allergy (Verified 12/08/18 12:51) bee sting Allergy (Uncoded 12/08/18 12:51) Past Medical History - Social History Family history: Reviewed & Not Pertinent - Past Medical History Cardiac Medical History: Reports: Hx Hypercholesterolemia, Hx Hypertension Pulmonary Medical History: Reports: Hx Asthma, Hx COPD Renal/ Medical History: Denies: Hx Peritoneal Dialysis Musculoskeltal Medical History: Reports Hx Arthritis Infectious Medical History: Reports: Hx C-Diff Past Surgical History: Reports: Hx Tonsillectomy, Hx Tubal Ligation, Hx Urinary Tract Surgery - Immunizations Immunizations up to date: Yes Hx Diphtheria, Pertussis, Tetanus Vaccination: Yes Physical Exam - Vital signs Vitals: Temp Pulse Resp BP Pulse Ox 98.2 F 77 16 158/109 H 97 12/08/18 12:57 12/08/18 12:57 12/08/18 12:57 12/08/18 12:57 12/08/18 12:57 Course - Vital Signs Vital signs: Temp Pulse Resp BP Pulse Ox 98.2 F 77 16 158/109 H 97 12/08/18 12:57 12/08/18 12:57 12/08/18 12:57 12/08/18 12:57 12/08/18 12:57
[2018-12-08 13:53] LABS: ABSOLUTE EOSINOPHILS # (AUTO) 0.1 10^3/uL (0.0-0.6); ABSOLUTE LYMPHOCYTES (AUTO) 1.4 10^3/uL (0.5-4.7); ABSOLUTE MONOCYTES (AUTO) 0.6 10^3/uL (0.1-1.4); BASOPHILS % (AUTO) 0.6 % (0-2); EOSINOPHILS % (AUTO) 0.6 % (0-6); HEMATOCRIT 37.8 % (36.0-47.0); HEMOGLOBIN 12.4 g/dL (12.0-15.5); LYMPHOCYTES % (AUTO) 16.9 % (13-45); MEAN CORPUSCULAR HEMOGLOBIN 26.8 pg (27.0-33.4); MEAN CORPUSCULAR HGB CONC 32.9 g/dL (32.0-36.0); MEAN CORPUSCULAR VOLUME 81 fl (80-97); MONOCYTES % (AUTO) 7.9 % (3-13); PLATELET COUNT 251 10^3/uL (150-450); RED BLOOD COUNT 4.64 10^6/uL (3.72-5.28); TOTAL CELLS COUNTED % (AUTO) 100 %; WHITE BLOOD COUNT 8.1 10^3/uL (4.0-10.5)
[2018-12-08 14:06] LABS: APPEARANCE,URINE CLEAR; BILIRUBIN,URINE NEGATIVE (NEGATIVE); COLOR,URINE YELLOW; GLUCOSE, URINE NEGATIVE (NEGATIVE); KETONES,URINE NEGATIVE (NEGATIVE); LEUKOCYTE ESTERASE,URINE NEGATIVE (NEGATIVE); NITRITE,URINE NEGATIVE (NEGATIVE); PROTEIN,URINE NEGATIVE (NEGATIVE); UROBILINOGEN,URINE NEGATIVE mg/dL (<2.0)
[2018-12-08 14:14] LABS: ALANINE AMINOTRANSFERASE 20 U/L (9-52); ALKALINE PHOSPHATASE 73 U/L (38-126); ANION GAP 7 (5-19); ASPARTATE AMINO TRANSFERASE 22 U/L (14-36); BILIRUBIN,DIRECT 0.2 mg/dL (0.0-0.4); BILIRUBIN,TOTAL 0.6 mg/dL (0.2-1.3); BLOOD UREA NITROGEN 7 mg/dL (7-20); CALCIUM 9.1 mg/dL (8.4-10.2); CARBON DIOXIDE 32 mmol/L (22-30); CHLORIDE 101 mmol/L (98-107); GLUCOSE 100 mg/dL (75-110); POTASSIUM 4.4 mmol/L (3.6-5.0)
[2018-12-08] MEDS ORDERED: MORPHINE SULFATE 10 MG/ML INJ IV ONE (15:16)
--- NOTE | 2018-12-08 15:18 | ER Document Report ---
HPI - HPI Patient complains to provider of: Facial swelling Time Seen by Provider: 12/08/18 13:08 Onset: Yesterday Onset/Duration: Gradual Quality of pain: Achy Pain Level: 5 Context: Patient is currently being treated for dental caries with antibiotics. Patient states that she started to develop left-sided facial swelling despite taking penicillin. Patient denies any fever. Associated Symptoms: Other - Left-sided facial swelling Exacerbated by: Denies Relieved by: Denies Similar symptoms previously: Yes Recently seen / treated by doctor: Yes - ROS ROS below otherwise negative: Yes Systems Reviewed and Negative: Yes All other systems reviewed and negative - CONSTITUTIONAL Constitutional: DENIES: Fever, Chills - EENT Notes: Dental pain, left lower jaw swelling - NEURO Neurology: DENIES: Headache - RESPIRATORY Respiratory: DENIES: Coughing - GASTROINTESTINAL Gastrointestinal: DENIES: Nausea, Patient vomiting - REPRODUCTIVE Reproductive: DENIES: : - DERM Skin Color: Normal Skin Problems: None Past Medical History - General Information source: Patient - Social History Smoking Status: Never Smoker Frequency of alcohol use: None Drug Abuse: None Occupation: None Family History: CAD, CVA, DM, Hyperlipidemia, Hypertension, Malignancy Patient has suicidal ideation: No Patient has homicidal ideation: No - Past Medical History Cardiac Medical History: Reports: Hx Hypercholesterolemia, Hx Hypertension Pulmonary Medical History: Reports: Hx Asthma, Hx COPD Renal/ Medical History: Denies: Hx Peritoneal Dialysis Musculoskeletal Medical History: Reports Hx Arthritis Infectious Medical History: Reports: Hx C-Diff Past Surgical History: Reports: Hx Tonsillectomy, Hx Tubal Ligation, Hx Urinary Tract Surgery - Immunizations Immunizations up to date: Yes Hx Diphtheria, Pertussis, Tetanus Vaccination: Yes Hx Pneumococcal Vaccination: 06/28/12 Vertical Provider Document - CONSTITUTIONAL Agree With Documented VS: Yes Exam Limitations: No Limitations General Appearance: WD/WN, No Apparent Distress - INFECTION CONTROL TRAVEL OUTSIDE OF THE [place] IN LAST 30 DAYS: No - HEENT HEENT: Atraumatic, Normocephalic. negative: Pharyngeal Exudate, Pharyngeal Tenderness, Pharyngeal Erythema, Tympanic Membrane Red, Tympanic Membrane Bulging Mouth Diagram: 1 - Dental decay, fracture 2 - Tender indurated gingiva, no fluctuance, no sublingual or submental swelling - NECK Neck: Normal Inspection, Supple. negative: Lymphadenopathy-Left, Lymphadenopathy-Right - RESPIRATORY Respiratory: Breath Sounds Normal, No Respiratory Distress - CARDIOVASCULAR Cardiovascular: Regular Rate, Regular Rhythm, No Murmur - BACK Back: Normal Inspection - MUSCULOSKELETAL/EXTREMETIES Musculoskeletal/Extremeties: MAEW, FROM - NEURO Level of Consciousness: Awake, Alert, Appropriate Motor/Sensory: No Motor Deficit - DERM Integumentary: Warm, Dry, No Rash Course - Re-evaluation Re-evalutation: 12/08/18 17:22 Ct scan reviewed, patient without any dental abscess at this time although does have facial cellulitis. No sublingual or submental swelling. No concern for Daniel's angina. No potential airway compromise. Will start patient on clindamycin and encourage outpatient follow-up with a dentist for definitive treatment of her dental caries. - Vital Signs Vital signs: Temp Pulse Resp BP Pulse Ox 98.2 F 77 16 158/109 H 97 12/08/18 12:57 12/08/18 12:57 12/08/18 12:57 12/08/18 12:57 12/08/18 12:57 - Laboratory Result Diagrams: 12/08/18 13:30 12/08/18 13:30 Laboratory results interpreted by me: 12/08/18 12/08/18 13:30 13:30 MCH 26.8 L RDW 15.0 H Carbon Dioxide 32 H 12/08/18 17:22 Labs- Entire Visit 12/08/18 12/08/18 12/08/18 13:30 13:30 13:30 WBC 8.1 RBC 4.64 Hgb 12.4 Hct 37.8 MCV 81 MCH 26.8 L MCHC 32.9 RDW 15.0 H Plt Count 251 Seg Neutrophils % 74.0 Lymphocytes % 16.9 Monocytes % 7.9 Eosinophils % 0.6 Basophils % 0.6 Absolute Neutrophils 6.0 Absolute Lymphocytes 1.4 Absolute Monocytes 0.6 Absolute Eosinophils 0.1 Absolute Basophils 0.0 Sodium 140.0 Potassium 4.4 Chloride 101 Carbon Dioxide 32 H Anion Gap 7 BUN 7 Creatinine 0.69 Est GFR ( Amer) > 60 Est GFR (Non-Af Amer) > 60 Glucose 100 Calcium 9.1 Total Bilirubin 0.6 Direct Bilirubin 0.2 Neonat Total Bilirubin Not Reportable Neonat Direct Bilirubin Not Reportable Neonat Indirect Bili Not Reportable AST 22 ALT 20 Alkaline Phosphatase 73 Total Protein 7.0 Albumin 4.0 Urine Color YELLOW Urine Appearance CLEAR Urine pH 8.0 Ur Specific [place] 1.010 Urine Protein NEGATIVE Urine Glucose (UA) NEGATIVE Urine Ketones NEGATIVE Urine Blood NEGATIVE Urine Nitrite NEGATIVE Urine Bilirubin NEGATIVE Urine Urobilinogen NEGATIVE Ur Leukocyte Esterase NEGATIVE Urine WBC (Auto) 1 Urine RBC (Auto) 1 Urine Bacteria (Auto) TRACE Squamous Epi Cells Auto 6 Urine Mucus (Auto) RARE Urine Ascorbic Acid NEGATIVE - Diagnostic Test Radiology reviewed: Reports reviewed Discharge - Discharge Clinical Impression: Facial cellulitis, Dental caries Condition: Stable Disposition: HOME, SELF-CARE Instructions: Clindamycin (OM), Dentist, Dental Infection or Abscess (OM), Toothache (OM) Additional Instructions: Return immediately for any new or worsening symptoms Followup with your primary care provider, call tomorrow to make a followup appointment Follow-up with dental care provider for further management Prescriptions: Clindamycin HCl [Cleocin 300 mg Capsule] 300 mg PO TID #21 capsule Referrals: ANDREWS LORA DO [Primary Care Provider] - Follow up as needed [facility] [Provider Group] - Follow up as needed
[2018-12-08] MEDS ORDERED: IBUPROFEN 600 MG TABLET PO ONE (16:51)
--- NOTE | 2018-12-08 17:15 | RADIOLOGY REPORT (SQ) ---
EXAM DESCRIPTION: CT SOFT TISSUE NECK WITH COMPLETED DATE/TIME: 12/08/2018 4:30 pm REASON FOR STUDY: Facial and neck swollen from a dental infection COMPARISON: None. TECHNIQUE: Post IV contrasted scanning from skull base through lung apices with review of bone, soft tissue and lung windows. Reconstructed coronal and sagittal MPR images reviewed. All images stored on PACS. All CT scanners at this facility use dose modulation, iterative reconstruction, and/or weight based d osing when appropriate to reduce radiation dose to as low as reasonably achievable (ALARA). [facility]: Dose Right [facility]: CareDose [facility]: Dose Right [facility]: Teradose 4D [facility]: [employer] CONTRAST TYPE AND DOSE: contrast/concentration: Isovue 350.00 mg/ml; Total Contrast Delivered: 75.0 ml; Total Saline Delivered: 55.0 ml RENAL FUNCTION: Creatinine 0.7 RADIATION DOSE: CT Rad equipment meets quality standard of care and radiation dose reduction techniq ues were employed. CTDIvol: 18.1 mGy. DLP: 548 mGy-cm. . LIMITATIONS: None. FINDINGS: Advanced dental caries are present along the left lower 1st premolar tooth with periapical tooth root lucency. This is best shown on coronal image 20 and sagittal image 40 through 42. There is overlying facial cellulitis along the left facial soft tissues over the chin to the left of midli ne. No discrete abscess is identified. There are borderline enlarged submental lymph nodes, likely reactive. Multiple other dental caries a re present without facial cellulitis. SKULL BASE: Inferior brain parenchyma unremarkable MAJOR SALIVARY GLANDS: No solid or cystic masses. No inflammatory changes. LYMPHADENOPATHY: Borderline enlarged submental lymph nodes MUCOSAL MASSES OR ASYMMETRY: No mucosal masses or asymmetry. LARYNX/CORDS: No abnormal findings. VASCULAR STRUCTURES: The major vessels are patent. LUNG APICES: Clear. BONES: Intact. THYROID: Normal size. No masses. PARANASAL SINUSES: Clear. OTHER: No other significant finding. IMPRESSION: Facial cellulitis over the leftward chin without discrete abscess. Multiple dental suzie es present. Borderline enlarged submental lymph nodes. TECHNICAL DOCUMENTATION: JOB ID: [id number] Quality ID # [id number]: Final reports with documentation of one or more dose reduction techniques (e.g., Au tomated exposure control, adjustment of the mA and/or kV according to patient size, use of iterative reconstruction technique) 2010 [employer]- All Rights Reserved Reading location - IP/workstation name: [email or web address]
== END 2018-12-08 17:47 | disposition home or self-care (01) ==
LOC: ER 12:51
DX: L03.211 Cellulitis of face (principal); K02.9 Dental caries, unspecified; R22.0 Localized swelling, mass and lump, head; I10 Essential (primary) hypertension; J44.9 Chronic obstructive pulmonary disease, unspecified
CPT/HCPCS: 99283; 96365; 36415; 87040; 85025; 80053; 81001; 70491; A9270

== ENCOUNTER 2020-07-05 08:36 | Emergency (ER) | payer MEDICARE, MEDICAID ==
--- NOTE | 2020-07-05 10:16 | ER Document Report ---
ED General - General Chief Complaint: General Weakness Stated Complaint: DIZZINESS,DARK URINE Time Seen by Provider: 07/05/20 10:05 Notes: CHIEF COMPLAINT: Dark urine, possible dehydration HPI: 59-year-old female presenting to the emergency department today concerned about dark urine and possible dehydration. Patient states that she became ill with upper respiratory symptoms 10 days ago. 2 to 3 days ago went to her primary care provider states she had a negative rapid Covid test, was told she had a upper respiratory infection was placed on prednisone and amoxicillin. Patient states cough has improved but urine has stayed dark over the last 3 days. States when she drinks fluids it does lighten up but then becomes dark again. She denies abdominal pain back pain nausea vomiting or diarrhea. ROS: See HPI - all other systems were reviewed and are otherwise negative Constitutional: no fever Eyes: no drainage, no blurred vision ENT: no runny nose, no sore throat Cardiovascular: no chest pain Resp: no SOB, no cough GI: no vomiting, no diarrhea, no abdominal pain : no dysuria, positive dark urine Integumentary: no rash Allergy: no hives Musculoskeletal: no extremity pain or swelling Neurological: no numbness/tingling, no weakness MEDICATIONS: I agree with the patient medications as charted by the RN. ALLERGIES: I agree with the allergies as charted by the RN. PAST MEDICAL HISTORY/PAST SURGICAL HISTORY: Reviewed and agree as charted by RN. SOCIAL HISTORY: Reviewed and agree as charted by RN. FAMILY HISTORY: No significant familial comorbid conditions directly related to patient complaint EXAM: Reviewed vital signs as charted by RN. CONSTITUTIONAL: Alert and oriented and responds appropriately to questions. Well-appearing; well-nourished HEAD: Normocephalic; atraumatic EYES: PERRL; Conjunctivae clear, sclerae non-icteric ENT: normal nose; no rhinorrhea; moist mucous membranes; pharynx without lesions noted, no uvula edema or deviation, no tonsillar hypertrophy, phonation normal NECK: Supple without meningismus; non-tender; no cervical lymphadenopathy, no masses CARD: RRR; no murmurs, no clicks, no rubs, no gallops; symmetric distal pulses RESP: Normal chest excursion without splinting or tachypnea; breath sounds clear and equal bilaterally; no wheezes, no rhonchi, no rales, pulse oximetry ABD/GI: Normal bowel sounds; non-distended; soft, non-tender, no rebound, no guarding; no palpable organomegaly or masses. BACK: The back appears normal and is non-tender to palpation, there is no CVA t enderness EXT: Normal ROM in all joints; non-tender to palpation; no cyanosis, no effusions, no edema SKIN: Normal color for age and race; warm; dry; good turgor; no acute lesions noted NEURO: Moves all extremities equally; Motor and sensory function intact PSYCH: The patient's mood and manner are appropriate. Grooming and personal hygiene are appropriate. MDM: 59-year-old female presenting for questionable dehydration. She has no nausea vomiting or diarrhea no abdominal pain or back pain. We will send baseline screening labs. Give 1 L of normal saline. She states she had a negative rapid Covid test will reassess labs and decide on further treatment options if needed The patient was evaluated during the global COVID-19 pandemic and that diagnosis was suspected/considered upon their initial presentation. Their evaluation, treatment and testing was consistent with current guidelines for patients who present with complaints or symptoms that may be related to COVID-19 TRAVEL OUTSIDE OF THE [place] IN LAST 30 DAYS: No - Related Data Allergies/Adverse Reactions: spider venom Allergy (Verified 12/08/18 12:51) bee sting Allergy (Uncoded 12/08/18 12:51) Past Medical History - Social History Smoking Status: Never Smoker Chew tobacco use (# tins/day): No Frequency of alcohol use: None Drug Abuse: None Family History: CAD, CVA, DM, Hyperlipidemia, Hypertension, Malignancy - Past Medical History Cardiac Medical History: Reports: Hx Hypercholesterolemia, Hx Hypertension Pulmonary Medical History: Reports: Hx Asthma, Hx COPD Renal/ Medical History: Denies: Hx Peritoneal Dialysis Musculoskeletal Medical History: Reports Hx Arthritis Infectious Medical History: Reports: Hx C-Diff Past Surgical History: Reports: Hx Tonsillectomy, Hx Tubal Ligation, Hx Urinary Tract Surgery - Immunizations Immunizations up to date: Yes Hx Diphtheria, Pertussis, Tetanus Vaccination: Yes Hx Pneumococcal Vaccination: 06/28/12 Physical Exam - Vital signs Vitals: Temp Pulse Resp BP Pulse Ox 99.5 F 98 16 126/85 H 94 07/05/20 08:41 07/05/20 08:41 07/05/20 08:41 07/05/20 08:41 07/05/20 08:41 Course - Re-evaluation Re-evalutation: 07/05/20 11:54 Patient is in absolutely no distress at this time. She does not appear dehydrated clinically or based on her labs. She does appear to have a urinary infection, will add a culture, will change patient to Keflex from amoxicillin - Vital Signs Vital signs: Temp Pulse Resp BP Pulse Ox 99.5 F 98 16 126/85 H 94 07/05/20 08:41 07/05/20 08:41 07/05/20 08:41 07/05/20 08:41 07/05/20 08:41 - Laboratory Results Result Diagrams: 07/05/20 09:55 07/05/20 09:55 Laboratory Results Interpreted: 07/05/20 07/05/20 07/05/20 09:55 09:55 09:55 MCH 26.8 L RDW 14.9 H Lymph % (Auto) 9.6 L Seg Neutrophils % 82.9 H Sodium 134.6 L Chloride 97 L Glucose 117 H AST 47 H Urine Protein 100 H Urine Ketones TRACE H Urine Urobilinogen 4.0 H Ur Leukocyte Esterase SMALL H Critical Laboratory Results Reviewed: No Critical Results - Radiology Results Critical Radiology Results Reviewed: No Critical Results Discharge - Discharge Clinical Impression: UTI (urinary tract infection) Qualifiers: Urinary tract infection type: acute cystitis Hematuria presence: without hematuria Qualified Code(s): N30.00 - Acute cystitis without hematuria Condition: Stable Disposition: HOME, SELF-CARE Instructions: Urinary Tract Infection ([facility]) Additional Instructions: Continue to hydrate well at home. Stop the amoxicillin and start the Keflex for the urinary infection. Follow-up with your primary care provider for re evaluation of symptoms call for appointment Prescriptions: Cephalexin Monohydrate [Keflex 500 mg Capsule] 500 mg PO Q6H 7 Days #28 capsule
[2020-07-05] MEDS ORDERED: NORMAL SALINE 1000 ML 1,000 ML IV PRN (10:30)
[2020-07-05 10:34] LABS: ABSOLUTE LYMPHOCYTES (AUTO) 0.6 10^3/uL (0.5-4.7); ABSOLUTE MONOCYTES (AUTO) 0.4 10^3/uL (0.1-1.4); ABSOLUTE NEUT (AUTO) 4.9 10^3/uL (1.7-8.2); BASOPHILS % (AUTO) 0.3 % (0-2); EOSINOPHILS % (AUTO) 0.1 % (0-6); HEMATOCRIT 42.3 % (36.0-47.0); HEMOGLOBIN 14.1 g/dL (12.0-15.5); LYMPHOCYTES % (AUTO) 9.6 % (13-45); MEAN CORPUSCULAR HEMOGLOBIN 26.8 pg (27.0-33.4); MEAN CORPUSCULAR HGB CONC 33.4 g/dL (32.0-36.0); MEAN CORPUSCULAR VOLUME 80 fl (80-97); MONOCYTES % (AUTO) 7.1 % (3-13); PLATELET COUNT 232 10^3/uL (150-450); RED BLOOD COUNT 5.28 10^6/uL (3.72-5.28); RED CELL DISTRIBUTION WIDTH 14.9 % (11.5-14.0); SEGMENTED NEUTROPHILS % (AUTO) 82.9 % (42-78); TOTAL CELLS COUNTED % (AUTO) 100 %; WHITE BLOOD COUNT 5.9 10^3/uL (4.0-10.5)
[2020-07-05 10:54] LABS: ALBUMIN 4.2 g/dL (3.5-5.0); ALKALINE PHOSPHATASE 74 U/L (38-126); ANION GAP 9 (5-19); ASPARTATE AMINO TRANSFERASE 47 U/L (14-36); BILIRUBIN,DIRECT 0.4 mg/dL (0.0-0.4); BLOOD UREA NITROGEN 16 mg/dL (7-20); CALCIUM 9.4 mg/dL (8.4-10.2); CARBON DIOXIDE 29 mmol/L (22-30); CHLORIDE 97 mmol/L (98-107); CREATINE KINASE 33 U/L (30-135); GLUCOSE 117 mg/dL (75-110); POTASSIUM 4.7 mmol/L (3.6-5.0); TOTAL PROTEIN 7.8 g/dL (6.3-8.2)
[2020-07-05 11:08] LABS: APPEARANCE,URINE SLIGHTLY-CLOUDY; BILIRUBIN,URINE NEGATIVE (NEGATIVE); COLOR,URINE AMBER; GLUCOSE, URINE NEGATIVE (NEGATIVE); KETONES,URINE TRACE mg/dL (NEGATIVE); LEUKOCYTE ESTERASE,URINE SMALL (NEGATIVE); NITRITE,URINE NEGATIVE (NEGATIVE); PROTEIN,URINE 100 mg/dL (NEGATIVE); URINE SPECIFIC GRAVITY 1.026
[2020-07-05 12:27] VITALS: BP 120/74
== END 2020-07-05 12:26 | disposition home or self-care (01) ==
LOC: ER 08:36
DX: N30.00 Acute cystitis without hematuria (principal); R53.1 Weakness; R42 Dizziness and giddiness; E78.00 Pure hypercholesterolemia, unspecified; I10 Essential (primary) hypertension; J44.9 Chronic obstructive pulmonary disease, unspecified; Z98.51 Tubal ligation status
CPT/HCPCS: 99284; 96360; 36415; 87086; 82550; 85025; 80053; 81001; J7030